=== PATIENT | male | born 1965 | race Caucasian/White ===

== ENCOUNTER → 2016-08-26 | Outpatient (CLI) | payer OTHER ==
[~2016-08-26] MED LIST: BACTRIM,SEPT1 TABLET PO; PAXIL40 MG PO; PREDNISONE20 MG PO; PREDNISONE50 MG PO; PRILOSEC20 MG PO; PROVENTIL,2.5 MG/3 M IH; ZITHROMAX Z-PA250 MG PO
== END | disposition home or self-care (01) ==
LOC: RAD 08:58
DX: R30.0 Dysuria (principal); R35.0 Frequency of micturition
CPT/HCPCS: 74000